=== PATIENT | male | born 1985 | race Two or more races ===

== ENCOUNTER 2020-10-12 17:24 | Emergency (ER) | payer BC, OTHER ==
--- NOTE | 2020-10-12 18:22 | EDM.PDOC ---
ED HPI GENERAL MEDICAL PROBLEM - General Chief Complaint: Respiratory Problem Stated Complaint: WEAK/COUGH/CHILLS/BODY ACHES Time Seen by Provider: 10/12/20 17:45 Source of Information: Reports: Patient History Limitations: Reports: No Limitations - History of Present Illness INITIAL COMMENTS - FREE TEXT/NARRATIVE: The patient presents with a cough, generalized weakness and body aches. He denies having a fever. His came back from [facility] recently and was sick. She is being evaluated now. He has no health problems like asthma or COPD. He has not lost his sense of smell or taste. He does smoke daily. Onset: Gradual Duration: Day(s): Location: Reports: Generalized Quality: Reports: Ache Severity: Moderate Improves with: Reports: None Worsens with: Reports: None Associated Symptoms: Reports: No Other Symptoms Generalized Pain Score (Numeric/FACES): 5 - Related Data Allergies Allergy/AdvReac Type Severity Reaction Status Date / Time No Known Allergies Allergy Verified 10/12/20 17:50 Home Meds: Home Meds dexAMETHasone [Dexamethasone] 6 mg PO ONETIME #12 tab 10/12/20 [Rx] Past Medical History - Past Health History Medical/Surgical History: Denies Medical/Surgical History Social & Family History - Tobacco Use Tobacco Use Status *Q: Current Every Day Tobacco User Years of Tobacco use: 20 Packs/Tins Daily: 1 - Recreational Drug Use Recreational Drug Use: No ED ROS GENERAL - Review of Systems Review Of Systems: See Below Constitutional: Reports: No Symptoms HEENT: Reports: No Symptoms Respiratory: Reports: No Symptoms Cardiovascular: Reports: No Symptoms Endocrine: Reports: No Symptoms GI/Abdominal: Reports: No Symptoms : Reports: No Symptoms Musculoskeletal: Reports: No Symptoms ED EXAM, GENERAL - Physical Exam Exam: See Below Exam Limited By: No Limitations General Appearance: Alert, No Apparent Distress Ears: Normal External Exam Nose: Normal Inspection Head: Atraumatic, Normocephalic Neck: Normal Inspection Respiratory/Chest: No Respiratory Distress, Lungs Clear, Normal Breath Sounds Cardiovascular: Regular Rate, Rhythm, No Edema, No Murmur GI/Abdominal: Soft, Non-Tender, No Organomegaly, No Mass Back Exam: Normal Inspection Extremities: Normal Inspection Course - Vital Signs Last Recorded V/S: Last Vital Signs Temp 97.6 F 10/12/20 17:48 Pulse 103 H 10/12/20 17:48 Resp 16 10/12/20 17:48 BP 129/91 H 10/12/20 17:48 Pulse Ox 97 10/12/20 17:48 - Orders/Labs/Meds Orders: Active Orders 24 hr Category Date Time Status Cardiac Monitoring [RC] . DIRECTED Care 10/12/20 17:59 Active Labs: Laboratory Tests 10/12/20 10/12/20 10/12/20 Range/Units 18:05 18:20 18:20 WBC 7.66 (4.23-9.07) K/mm3 RBC 5.24 (4.63-6.08) M/mm3 Hgb 14.9 (13.7-17.5) gm/dl Hct 45.3 (40.1-51.0) % MCV 86.5 (79.0-92.2) fl MCH 28.4 (25.7-32.2) pg MCHC 32.9 (32.2-35.5) g/dl RDW Std Deviation 41.3 (35.1-43.9) fL Plt Count 286 (163-337) K/mm3 MPV 9.5 (9.4-12.3) fl Neut % (Auto) 76.2 H (34.0-67.9) % Lymph % (Auto) 8.1 L (21.8-53.1) % Frio % (Auto) 12.5 H (5.3-12.2) % Eos % (Auto) 2.6 (0.8-7.0) Baso % (Auto) 0.3 (0.1-1.2) % Neut # (Auto) 5.84 H (1.78-5.38) K/mm3 Lymph # (Auto) 0.62 L (1.32-3.57) K/mm3 Frio # (Auto) 0.96 H (0.30-0.82) K/mm3 Eos # (Auto) 0.20 (0.04-0.54) K/mm3 Baso # (Auto) 0.02 (0.01-0.08) K/mm3 Manual Slide Review Abnormal smear Sodium 141 (136-145) mEq/L Potassium 3.8 (3.5-5.1) mEq/L Chloride 104 (98-107) mEq/L Carbon Dioxide 27 (21-32) mEq/L Anion Gap 13.8 (5-15) BUN 14 (7-18) mg/dL Creatinine 1.2 (0.7-1.3) mg/dL Est Cr Clr Drug Dosing 96.10 mL/min Estimated GFR (MDRD) > 60 (>60) mL/min BUN/Creatinine Ratio 11.7 L (14-18) Glucose 90 (70-99) mg/dL Calcium 8.8 (8.5-10.1) mg/dL Total Bilirubin 0.6 (0.2-1.0) mg/dL AST 35 (15-37) U/L ALT 44 (16-63) U/L Alkaline Phosphatase 60 (46-116) U/L C-Reactive Protein 0.7 (<1.0) mg/dL Total Protein 7.5 (6.4-8.2) g/dl Albumin 4.3 (3.4-5.0) g/dl Globulin 3.2 gm/dL Albumin/Globulin Ratio 1.3 (1-2) SARS-CoV-2 RNA (MIROSLAVA) Positive H (NEGATIVE) - Re-Assessments/Exams Free Text/Narrative Re-Assessment/Exam: 10/12/20 18:23 I ordered a CXR and labs. 10/12/20 19:25 His CXR looks good. His CBC and CMP look good. He is COVID 19 positive. I will give him a prescription some dexamethasone. Departure - Departure Time of Disposition: 19:30 Disposition: Home, Self-Care 01 Condition: Good Clinical Impression: COVID - Discharge Information *PRESCRIPTION DRUG MONITORING PROGRAM REVIEWED*: Not Applicable *COPY OF PRESCRIPTION DRUG MONITORING REPORT IN PATIENT EMILIANO: Not Applicable Prescriptions: dexAMETHasone [Dexamethasone] 6 mg PO ONETIME #12 tab Referrals: Jacquie Lee NP [Primary Care Provider] - 1 Week Forms: ED Department Discharge, ED Return to Work/School Form Additional Instructions: Drink plenty of fluids. Take tylenol or motrin as needed for pain or fever. If you start feeling worse in a few days start taking the dexamethasone. Please return if you are worse. Sepsis Event Note (ED) - Evaluation Sepsis Screening Result: No Definite Risk - Focused Exam Vital Signs: Vital Signs Temp Pulse Resp BP Pulse Ox 10/12/20 17:48 97.6 F 103 H 16 129/91 H 97 - My Orders Last 24 Hours: My Active Orders 10/12/20 17:59 Cardiac Monitoring [RC] . DIRECTED - Assessment/Plan Last 24 Hours: My Active Orders 10/12/20 17:59 Cardiac Monitoring [RC] . DIRECTED
--- NOTE | 2020-10-12 18:46 | CR ---
Chest: Portable view of the chest was obtained. Comparison: No prior chest imaging is available. Heart size and mediastinum are normal. Lungs are clear with no acute parenchymal change. No acute osseous abnormality is appreciated. Impression: 1. Nothing acute is seen on portable chest x-ray. Diagnostic code #1
== END 2020-10-12 19:42 | disposition home or self-care (01) ==
LOC: JD.ED 17:24
DX: U07.1 COVID-19 (principal); Z72.0 Tobacco use
CPT/HCPCS: 36415; 71045; 71045-26; 80053; 85025; 86140; 99283; 99285-25; U0002

== ENCOUNTER 2020-10-18 04:16 | Emergency (ER) | payer BC ==
[2020-10-18] MEDS ORDERED: EPINEPHrine 1 MG/ML SDV IM PRN (04:57)
[2020-10-18] MEDS ORDERED: methylPREDNISolone Sodium Succinate 125 MG/2 ML SDV IVPUSH PRN (04:57)
[2020-10-18] MEDS ORDERED: Famotidine 20 MG/2 ML SDV IVPUSH PRN (04:57)
[2020-10-18] MEDS ORDERED: diphenhydrAMINE 50 MG/ML SDV IVPUSH PRN (04:57)
[2020-10-18] MEDS ORDERED: Sodium Chloride 0.9% 100 ML ONE (04:59)
[2020-10-18] MEDS ORDERED: Sodium Chloride 0.9% 10 ML Syringe FLUSH SCH (05:00)
--- NOTE | 2020-10-18 05:01 | EDM.PDOC ---
ED HPI GENERAL MEDICAL PROBLEM - General Chief Complaint: Respiratory Problem Stated Complaint: COVID POSITIVE/SOB/COUGH/CHEST PAIN Time Seen by Provider: 10/18/20 04:27 Source of Information: Reports: Patient, Family () History Limitations: Reports: No Limitations - History of Present Illness INITIAL COMMENTS - FREE TEXT/NARRATIVE: Mr. Still is a very pleasant 35-year-old gentleman who states that he had been experiencing body aches, dry cough, and generalized weakness, which prompted him to come to the ED on 10/12/2020. He and his tested positive for the SARS-C oV-2 virus. The patient's had been visiting [place], apparently became infected, and brought it back to the patient, who had remained home. His received an infusion of Regen-COV, but he did not. Instead, he was started on dexamethasone and discharged home with a prescription for 6 mg, 1 tablet daily, which he states he started on , 10/13/2020. The patient now returns the ED stating that he is now experiencing a nonproductive cough which has caused him to vomit twice, and that the cough and vomiting has been causing him chest pain since 10/14/2020. He has also been experiencing chills without fever. He states that he has been taking ibuprofen and Tylenol, without much relief. Here in the ED, the patient is found to be slightly tachypneic at 22 rpm, otherwise, he is hemodynamically stable, afebrile, saturating 95% on room air. The patient denies having a recent sore throat, ear pain, nasal or sinus congestion, dyspnea, palpitations, constipation, diarrhea, abdominal pain, urinary symptoms, recent weight gain or weight loss, recent bloody bowel movements or black bowel movements, recent joint aches, headaches, or rashes. The patient's PCP is Jacquie Lee NP. The patient did not get a COVID vaccination. Chest Pain Score (Numeric/FACES): 5 - Related Data Allergies Allergy/AdvReac Type Severity Reaction Status Date / Time No Known Allergies Allergy Verified 10/18/20 04:35 Home Meds: Home Meds dexAMETHasone [Dexamethasone] 6 mg PO ONETIME #12 tab 10/12/20 [Rx] Orphenadrine [Norflex] 1 tab PO Q12H PRN #14 tab.er 10/18/20 [Rx] Past Medical History Endocrine/Metabolic History: Reports: Obesity/BMI 30+ - Infectious Disease History Infectious Disease History: Reports: Novel Coronavirus (dx'd 10/12/2020) - Past Surgical History HEENT Surgical History: Reports: Oral Surgery (dental extractions) Social & Family History - Tobacco Use Tobacco Use Status *Q: Current Every Day Tobacco User Years of Tobacco use: 15 Packs/Tins Daily: 0.3 Tobacco Use Comment: Started smoking 2005 - Alcohol Use Alcohol Use History: Yes Alcohol Use Frequency: Binges - Recreational Drug Use Recreational Drug Use: No - Living Situation & Occupation Living situation: Reports: , with Spouse, with Family (2 sons) Occupation: Employed ([employer]) ED ROS GENERAL - Review of Systems Review Of Systems: Comprehensive ROS is negative, except as noted in HPI. ED EXAM, GENERAL - Physical Exam Exam: See Below Exam Limited By: No Limitations General Appearance: Alert, WD/WN, Mild Distress (Appears uncomfortable. Coughs occasionally.) Eye Exam: Bilateral Eye: EOMI, Normal Inspection Ears: Normal External Exam, Hearing Grossly Normal Nose: Normal Inspection Throat/Mouth: Normal Inspection, Normal Lips, Normal Voice, No Airway Compromise Head: Atraumatic, Normocephalic Neck: Normal Inspection, Full Range of Motion Respiratory/Chest: No Respiratory Distress, Lungs Clear, Normal Breath Sounds, No Accessory Muscle Use. No: Decreased Breath Sounds, Crackles, Rhonchi, Wheezing, Stridor, Prolonged Expiration Cardiovascular: Normal Peripheral Pulses, Regular Rate, Rhythm, No Edema, No Gallop, No JVD, No Murmur, No Rub Peripheral Pulses: 3+: Radial (L), Radial (R) GI/Abdominal: Normal Bowel Sounds, Soft, Non-Tender, No Organomegaly, No Distention, No Abnormal Bruit, No Mass Back Exam: Normal Inspection, Full Range of Motion, NT Extremities: Normal Inspection, Normal Range of Motion, No Pedal Edema, Normal Capillary Refill Neurological: Alert, Oriented, Normal Cognition, No Motor/Sensory Deficits Psychiatric: Normal Affect Skin Exam: Warm, Dry, Intact, Normal Color, No Rash Course - Vital Signs Last Recorded V/S: Last Vital Signs Temp 37.4 C 10/18/20 04:30 Pulse 98 10/18/20 04:30 Resp 22 H 10/18/20 04:30 BP 133/83 10/18/20 04:30 Pulse Ox 95 10/18/20 04:30 - Orders/Labs/Meds Meds: Medications Discontinued Medications Generic Name Dose Route Start Last Admin Trade Name Rafiqq PRN Reason Stop Dose Admin Diphenhydramine HCl 50 mg 10/18/20 04:57 Diphenhydramine 50 Mg/Ml Sdv IVPUSH ONETIME PRN hypersensitivity reaction Epinephrine HCl 0.3 mg 10/18/20 04:57 Epinephrine 1 Mg/Ml Sdv IM ONETIME PRN hypersensitivity reaction Famotidine 20 mg 10/18/20 04:57 Famotidine 20 Mg/2 Ml Sdv IVPUSH ONETIME PRN hypersensitivity reaction CASIRIVIMAB/IMDEVIMAB 10 ml/ 110 mls @ 220 mls/hr 10/18/20 04:57 Sodium Chloride IV 10/18/20 05:26 ONETIME ONE Sodium Chloride Confirm 10/18/20 04:59 Normal Saline Administered 10/18/20 05:00 Dose 100 mls @ as directed .ROUTE .STK-MED ONE Methylprednisolone Sodium Succinate 125 mg 10/18/20 04:57 Methylprednisolone Sodium Succinate 125 Mg/2 Ml Sdv IVPUSH ONETIME PRN hypersensitivity reaction Orphenadrine Citrate 100 mg 10/18/20 05:15 10/18/20 05:27 Orphenadrine 100 Mg Tab.Er PO 10/18/20 05:16 100 mg ONETIME STA Administration Sodium Chloride 30 ml 10/18/20 05:00 Sodium Chloride 0.9% 10 Ml Syringe FLUSH ASDIRECTED MARCELINA - Re-Assessments/Exams Free Text/Narrative Re-Assessment/Exam: 10/18/20 04:58 As above, the patient had body aches, dry cough and generalized weakness, and subsequently tested positive for the SARS-CoV-2 virus this past Saturday. He was prescribed dexamethasone 6 mg daily, which he started taking on , but now presents to the ED with the same persistent nonproductive cough which has caused him to vomit twice, with chest pain since Saturday due to both the coughing and the vomiting. He has had chills without fever. His oxygen saturation is 95% on room air. He appears to be uncomfortable, but his physical exam is unremarkable. He states that he weighs 240 pounds, and is 6 foot 0, giving him a BMI of 32.5. He therefore qualifies for Regen-COV. I explained to the patient that at present there are 3 emergency use authorization monoclonal antibody formulations, and that we carry Casirivimab and Imdevimab (Regen-COV). I explained that Regen-COV is an investigational medicine used to treat mild to moderate symptoms of COVID-19 in nonhospitalized patients who are at higher risk for the development of severe COVID-19 symptoms or the need for hospitalization. I explained that Regen-COV is FDA authorized under an emergency use authorization. I explained that the main risk of receiving Regen-COV is an allergic reaction that can occur either during or after the infusion. Additionally, Regen-COV could reduce the body's response to a subsequent vaccine against the SARS-CoV-2 virus, which the patient acknowledged he would like to get. I instructed the patient that if he choses to get the infusion, it takes about an hour to get the infusion, and then he will have to wait another hour for observation. He agreed. I have ordered a Regen-COV infusion. 10/18/20 05:16 Notified that the patient wanted to talk to me. The patient stated that he changed his mind and that he does not want to take the Regen-COV, due to concerns about possible side effects. He requested something for his back pain. I will start him on Norflex, and submit a prescription for the same. I recommended that he take [id number] ibuprofen with it, as they tend to work well, and will probably work better than acetaminophen. He asked about a [facility] medicine. The current guidelines recommend either dexamethasone or Tessalon Perles, however, it is my experience that these medications do not benefit cough, but do have some side effects. I recommended self proning, which may be of some use. I recommend that he stay adequately hydrated and rested. I reminded the patient and his that they need to remain in strict isolation, and they acknowledged that. The patient already has a pulse oximeter at home. I advised him to discontinue the previously prescribed dexamethasone, as he is not at this time hypoxemic, but that if his SpO2 drops near 90%, that he should return to the ED for reevaluation. Departure - Departure Time of Disposition: 05:18 Disposition: Home, Self-Care 01 Condition: Good Clinical Impression: COVID-19 - Discharge Information *PRESCRIPTION DRUG MONITORING PROGRAM REVIEWED*: Not Applicable *COPY OF PRESCRIPTION DRUG MONITORING REPORT IN PATIENT EMILIANO: Not Applicable Prescriptions: Orphenadrine [Norflex] 1 tab PO Q12H PRN #14 tab.er PRN Reason: Muscle Spasm - Painful Instructions: COVID-19 Frequently Asked Questions Referrals: Jacquie Lee MAINFRAME DEVELOPER [Primary Care Provider] - Forms: ED Department Discharge Additional Instructions: You were seen in the emergency room for a persistent dry cough causing you to vomit and have chest pain, along with chills, associated with COVID-19 being diagnosed on 10/12/2020. Treatment with the monoclonal antibody medicine Regen-COV was offered, but declined. You have been started on the muscle relaxant Norflex, and a prescription for Norflex has been sent to the [facility] located in the [place] store. Take 1 tablet of Norflex every 12 hours, starting this evening, 10/18/2020, as prescribed. Norflex works well with ibuprofen. Take 3 tablets (600 mg) of [id number] ibuprofen, with food, up to every 8 hours, as needed for muscle and body aches. As discussed, there are no cough medicines that have been shown to be of benefit, however, lying in a face-down position may be of some help. Stay adequately hydrated and rested. As discussed, it is essential that you and your strictly quarantine until you are asymptomatic and test negative for the virus. Be aware that this may take 6 weeks or longer. As discussed, we recommend that you DISCONTINUE your previously prescribed dexamethasone. Continue to monitor your oxygen saturation. If it drops down to 90% or below, please return to the ER for reevaluation. Sepsis Event Note (ED) - Evaluation Sepsis Screening Result: No Definite Risk - Focused Exam Vital Signs: Vital Signs Temp Pulse Resp BP Pulse Ox 10/18/20 04:30 37.4 C 98 22 H 133/83 95
[2020-10-18] MEDS ORDERED: Orphenadrine 100 MG Tab.ER PO STA (05:15)
== END 2020-10-18 05:39 | disposition home or self-care (01) ==
LOC: JD.ED 04:16
DX: U07.1 COVID-19 (principal); E66.9 Obesity, unspecified; Z68.30 Body mass index [BMI] 30.0-30.9, adult; Z72.0 Tobacco use
CPT/HCPCS: 99284; A9270

== ENCOUNTER 2020-10-19 14:30 | Emergency (ER) | payer BC ==
[2020-10-19] MEDS ORDERED: Ketorolac 30 MG/ML SDV IVPUSH ONE (15:25)
[2020-10-19] MEDS ORDERED: Dexamethasone 4 MG/ML SDV IVPUSH ONE (15:26)
[2020-10-19] MEDS ORDERED: Metoclopramide 10 MG/2 ML SDV IVPUSH ONE (15:32)
--- NOTE | 2020-10-19 15:42 | EDM.PDOC ---
ED HPI GENERAL MEDICAL PROBLEM - General Chief Complaint: General Stated Complaint: COVID COUGH CHEST PAIN Time Seen by Provider: 10/19/20 14:52 Source of Information: Reports: Patient, RN Notes Reviewed History Limitations: Reports: No Limitations - History of Present Illness INITIAL COMMENTS - FREE TEXT/NARRATIVE: Patient is a 35-year-old male presenting to the emergency department with complaints of chest discomfort, cough, shortness of breath, body aches, and vomiting. He was diagnosed with Covid 7 days ago. Reports that he was put on a course of dexamethasone, however he stopped it yesterday at the instruction of the ER provider that he saw yesterday. He reports chest wall discomfort, primarily in the bottom of his rib cage worse with breathing and coughing. Body aches are also significant. He feels short of breath. Denies any chronic medical conditions. He did not receive Covid vaccinations and declined monoclonal antibody infusion yesterday. He has been using Tylenol and ibuprofen for discomfort. Last dose was around 1030 this morning. On arrival to ER, oxygen saturation was initially found to be 96% on room air, however by the time of my exam, he was maintaining 87 to 88% on room air. He is mildly tachycardic at 100-115. - Related Data Allergies Allergy/AdvReac Type Severity Reaction Status Date / Time No Known Allergies Allergy Verified 10/19/20 14:50 Home Meds: Home Meds dexAMETHasone [Dexamethasone] 6 mg PO ONETIME #12 tab 10/12/20 [Rx] Orphenadrine [Norflex] 1 tab PO Q12H PRN #14 tab.er 10/18/20 [Rx] Past Medical History - Past Health History Medical/Surgical History: Denies Medical/Surgical History Endocrine/Metabolic History: Reports: Obesity/BMI 30+ - Infectious Disease History Infectious Disease History: Reports: Novel Coronavirus - Past Surgical History HEENT Surgical History: Reports: Oral Surgery Social & Family History - Tobacco Use Tobacco Use Status *Q: Current Every Day Tobacco User Years of Tobacco use: 15 Packs/Tins Daily: 0.3 - Recreational Drug Use Recreational Drug Use: No - Living Situation & Occupation Living situation: Reports: , with Spouse, with Family (2 sons) Occupation: Employed ([employer]) ED ROS GENERAL - Review of Systems Review Of Systems: See Below Constitutional: Reports: Fever, Chills, Weakness, Fatigue HEENT: Reports: No Symptoms Respiratory: Reports: Shortness of Breath, Pleuritic Chest Pain, Cough Cardiovascular: Reports: Chest Pain, Dyspnea on Exertion. Denies: Lightheadedness Endocrine: Reports: No Symptoms GI/Abdominal: Reports: No Symptoms, Nausea, Vomiting : Reports: No Symptoms Musculoskeletal: Reports: Other (Generalized body aches) Skin: Reports: No Symptoms Neurological: Reports: Headache. Denies: Confusion, Dizziness Psychiatric: Reports: No Symptoms Hematologic/Lymphatic: Reports: No Symptoms Immunologic: Reports: No Symptoms ED EXAM, GENERAL - Physical Exam Exam: See Below Exam Limited By: No Limitations General Appearance: Alert, Mild Distress Respiratory/Chest: No Respiratory Distress, No Accessory Muscle Use (Fine crackles throughout lung starkey. Chest wall tender to palpation, particular to the bilateral lower rib cage.) Cardiovascular: Normal Peripheral Pulses, Regular Rate, Rhythm, No Edema, No Gallop, No JVD, No Murmur, No Rub GI/Abdominal: Normal Bowel Sounds, Soft, Non-Tender, No Organomegaly, No Distention, No Abnormal Bruit, No Mass Neurological: Alert, Oriented, CN II-XII Intact, Normal Cognition, Normal Gait, Normal Reflexes, No Motor/Sensory Deficits Psychiatric: Anxious Skin Exam: Warm, Dry, Intact, Normal Color, No Rash #1 Interpretation EKG Date: 10/19/20 Time: 15:06 Rhythm: NSR Rate (Beats/Min): 109 [place]: LAD-Left [place] Deviation P-Wave: Present QRS: Normal ST-T: Normal QT: Normal (EK) EKG Interpretation Comments: Sinus tachycardia 110/min Consider left atrial enlargement Left axis deviation Left anterior fascicular block Left ventricular hypertrophy pattern QTC is moderately prolonged EKG interpretted by Dr. Giovanna MD Course - Vital Signs Last Recorded V/S: Last Vital Signs Temp 98.1 F 10/19/20 16:40 Pulse 97 10/19/20 16:40 Resp 18 10/19/20 16:40 BP 108/66 10/19/20 16:40 Pulse Ox 97 10/19/20 16:40 - Orders/Labs/Meds Orders: Active Orders 24 hr Category Date Time Status Chest 1V Frontal [CR] Stat Exams 10/19/20 14:55 Taken Labs: Laboratory Tests 10/19/20 10/19/20 10/19/20 Range/Units 15:14 15:14 15:14 WBC 5.27 (4.23-9.07) K/mm3 RBC 5.94 (4.63-6.08) M/mm3 Hgb 16.5 D (13.7-17.5) gm/dl Hct 49.7 (40.1-51.0) % MCV 83.7 (79.0-92.2) fl MCH 27.8 (25.7-32.2) pg MCHC 33.2 (32.2-35.5) g/dl RDW Std Deviation 41.5 (35.1-43.9) fL Plt Count 203 D (163-337) K/mm3 MPV 10.3 (9.4-12.3) fl Neut % (Auto) 71.7 H (34.0-67.9) % Lymph % (Auto) 19.2 L (21.8-53.1) % [place] % (Auto) 8.5 (5.3-12.2) % Eos % (Auto) 0 L (0.8-7.0) Baso % (Auto) 0.2 (0.1-1.2) % Neut # (Auto) 3.78 (1.78-5.38) K/mm3 Lymph # (Auto) 1.01 L (1.32-3.57) K/mm3 [place] # (Auto) 0.45 (0.30-0.82) K/mm3 Eos # (Auto) 0.00 L (0.04-0.54) K/mm3 Baso # (Auto) 0.01 (0.01-0.08) K/mm3 D-Dimer, Quantitative 0.52 H (0.19-0.50) mg/L Sodium 135 L (136-145) mEq/L Potassium 3.2 L (3.5-5.1) mEq/L Chloride 95 L (98-107) mEq/L Carbon Dioxide 27 (21-32) mEq/L Anion Gap 16.2 H (5-15) BUN 18 (7-18) mg/dL Creatinine 1.4 H (0.7-1.3) mg/dL Est Cr Clr Drug Dosing 75.05 mL/min Estimated GFR (MDRD) 58 (>60) mL/min BUN/Creatinine Ratio 12.9 L (14-18) Glucose 110 H (70-99) mg/dL Calcium 8.8 (8.5-10.1) mg/dL Total Bilirubin 1.2 H (0.2-1.0) mg/dL AST 139 H (15-37) U/L ALT 205 H (16-63) U/L Alkaline Phosphatase 133 H (46-116) U/L Troponin I < 0.017 (0.00-0.056) ng/mL C-Reactive Protein (<1.0) mg/dL Total Protein 8.1 (6.4-8.2) g/dl Albumin 3.9 (3.4-5.0) g/dl Globulin 4.2 gm/dL Albumin/Globulin Ratio 0.9 L (1-2) // Range/Units 15:14 WBC (4.23-9.07) K/mm3 RBC (4.63-6.08) M/mm3 Hgb (13.7-17.5) gm/dl Hct (40.1-51.0) % MCV (79.0-92.2) fl MCH (25.7-32.2) pg MCHC (32.2-35.5) g/dl RDW Std Deviation (35.1-43.9) fL Plt Count (163-337) K/mm3 MPV (9.4-12.3) fl Neut % (Auto) (34.0-67.9) % Lymph % (Auto) (21.8-53.1) % [place] % (Auto) (5.3-12.2) % Eos % (Auto) (0.8-7.0) Baso % (Auto) (0.1-1.2) % Neut # (Auto) (1.78-5.38) K/mm3 Lymph # (Auto) (1.32-3.57) K/mm3 [place] # (Auto) (0.30-0.82) K/mm3 Eos # (Auto) (0.04-0.54) K/mm3 Baso # (Auto) (0.01-0.08) K/mm3 D-Dimer, Quantitative (0.19-0.50) mg/L Sodium (136-145) mEq/L Potassium (3.5-5.1) mEq/L Chloride (98-107) mEq/L Carbon Dioxide (21-32) mEq/L Anion Gap (5-15) BUN (7-18) mg/dL Creatinine (0.7-1.3) mg/dL Est Cr Clr Drug Dosing mL/min Estimated GFR (MDRD) (>60) mL/min BUN/Creatinine Ratio (14-18) Glucose (70-99) mg/dL Calcium (8.5-10.1) mg/dL Total Bilirubin (0.2-1.0) mg/dL AST (15-37) U/L ALT (16-63) U/L Alkaline Phosphatase (46-116) U/L Troponin I (0.00-0.056) ng/mL C-Reactive Protein 12.1 H* (<1.0) mg/dL Total Protein (6.4-8.2) g/dl Albumin (3.4-5.0) g/dl Globulin gm/dL Albumin/Globulin Ratio (1-2) Meds: Medications Discontinued Medications Generic Name Dose Route Start Last Admin Trade Name Freq PRN Reason Stop Dose Admin Dexamethasone 4 mg 10/19/20 15:26 10/19/20 15:46 Dexamethasone 4 Mg/Ml Sdv IVPUSH 10/19/20 15:27 4 mg ONETIME ONE Administration Potassium Chloride/Sodium Chloride 1,000 mls @ 100 mls/hr 10/19/20 16:00 10/19/20 16:36 Normal Saline With 40 Meq Kcl IV 100 mls/hr ASDIRECTED MARCELINA Administration Sodium Chloride 100 mls @ 60 mls/hr 10/19/20 16:15 10/19/20 16:29 Normal Saline IV 60 mls/hr ASDIRECTED MARCELINA Administration Iopamidol 100 ml 10/19/20 16:07 10/19/20 16:29 Iopamidol 755 Mg/Ml 100 Ml Bottle IVPUSH 10/19/20 16:08 100 ml ONETIME ONE Administration Ketorolac Tromethamine 30 mg 10/19/20 15:25 10/19/20 15:45 Ketorolac 30 Mg/Ml Sdv IVPUSH 10/19/20 15:26 30 mg ONETIME ONE Administration Metoclopramide HCl 10 mg 10/19/20 15:32 10/19/20 15:46 Metoclopramide 10 Mg/2 Ml Sdv IVPUSH 10/19/20 15:33 10 mg ONETIME ONE Administration Sodium Chloride 10 ml 10/19/20 16:15 10/19/20 16:29 Sodium Chloride 0.9% 10 Ml Syringe FLUSH 10 ml ASDIRECTED [facility] Administration - Re-Assessments/Exams Free Text/Narrative Re-Assessment/Exam: Patient is a 35-year-old male presenting to the emergency department with complaints of worsening of Covid symptoms. He was seen in this ER early yesterday morning as well. He was found to be stable at that time. He initially requested monoclonal antibody infusion, however later declined as he was concerned about possible side effects. He returns to ER today with complaints of worsening symptoms. Initial oxygen saturation was 96% on room air, however at the time of my exam, he was maintaining 87 to 88% on room air. He was placed on O2 at 2L/NC with improvement to 92% noted. On exam, he does defect diffuse fine crackles throughout his lung starkey likely due to Covid pneumonia. Exam is otherwise unremarkable. Patient is quite anxious. I have ordered blood work, EKG, and chest x-ray. I will give him dexamethasone 4 mg IV, Reglan 10 mg IV for nausea, and Toradol 30 mg IV for body aches and chest wall discomfort. 10/19/20 16:22 Hematology significant for D-dimer elevated 0.52, sodium 135, potassium 3.2, chloride 95, anion gap 16.2, creatinine 1.4, total bili 1.2, AST 139, ALT 205, alkaline phosphatase 133, CRP 12.1. Troponin is undetectably low. Chest x-ray shows bilateral Covid pneumonia. Given the patient's symptoms and elevation in D-dimer, I have ordered CT angiogram of the chest to rule out PE. He is currently saturating in the low 90s on 2 L of oxygen by nasal cannula. 10/19/20 17:09 CT angiogram of the chest shows no pulmonary embolism but does show moderately severe Covid pneumonia. Patient's oxygen saturations are in the low 90s on 2 L by nasal cannula. His symptoms have improved after medications given, however he does require hospitalization. Patient had called and said that he would like to leave. I discussed with him the severity of his illness and that if he goes home he will likely get worse. He agreed to hospitalization. Unfortunately have no beds available in this facility, therefore I was on the phone with Vadim Caceres when he rang again and said that he would like to sign out AGAINST MEDICAL ADVICE. Patient was advised that he could very well go into respiratory failure and , however he chose to leave. Departure - Departure Time of Disposition: 17:10 Disposition: Against Medical Advice 07 Condition: Fair Clinical Impression: Pneumonia due to COVID-19 virus - Discharge Information Referrals: Jacquie Lee NP [Primary Care Provider] - Forms: ED Department Discharge Sepsis Event Note (ED) - Evaluation Sepsis Screening Result: No Definite Risk - Focused Exam Vital Signs: Vital Signs Temp Pulse Resp BP Pulse Ox 10/19/20 16:40 98.1 F 97 18 108/66 97 10/19/20 14:46 97.8 F 103 H 18 112/87 96 - My Orders Last 24 Hours: My Active Orders 10/19/20 14:55 Chest 1V Frontal [CR] Stat - Assessment/Plan Last 24 Hours: My Active Orders 10/19/20 14:55 Chest 1V Frontal [CR] Stat
[2020-10-19] MEDS ORDERED: Sodium Chloride 0.9% with KCl 1,000 ML IV SCH (16:00)
[2020-10-19] MEDS ORDERED: Iopamidol 755 Mg/ML 100 ML Bottle IVPUSH ONE (16:07)
[2020-10-19] MEDS ORDERED: Sodium Chloride 0.9% 100 ML IV SCH (16:15)
[2020-10-19] MEDS ORDERED: Sodium Chloride 0.9% 10 ML Syringe FLUSH SCH (16:15)
--- NOTE | 2020-10-19 20:14 | CT ---
CT chest Technique: Multiple axial sections through the chest were obtained. Intravenous contrast was utilized. Study has been performed as a pulmonary angiogram protocol. Comparison: No prior chest CT study, prior chest x-ray performed on 10/12/20. Findings: Pulmonary arteries are fairly well opacified. No filling defects are seen to indicate pulmonary embolism. Thoracic aorta shows no aneurysm. No mediastinal adenopathy is seen. No axillary adenopathy is noted. No pericardial thickening is seen. Small portion of the visualized upper abdominal structures show several nodules inferior to the spleen compatible with accessory splenic tissue. No acute abdominal abnormality is appreciated. Patchy areas of increased density are noted on both sides of the chest compatible with patchy areas of probable COVID pneumonia. These parenchymal findings represent an interval change from prior chest x-ray. Impression: 1. Patchy areas of increased density within both sides of the chest compatible with COVID pneumonia. This is an interval change from prior chest x-ray. 2. No findings of pulmonary embolism. Diagnostic code #3 I agree with preliminary report from [facility], finalized on 10/19/20, 5:48 PM CDT, code 1
--- NOTE | 2020-10-20 09:12 | CR ---
Chest: Portable view of the chest was obtained. Comparison: Prior chest x-ray 10/12/20. Patchy areas of increased density are seen on both sides of the chest. These findings are an interval change from prior chest x-ray. Heart size and mediastinum are normal. Bony structures are grossly intact. Impression: 1. Patchy areas of increased density on both sides of the chest compatible with bilateral COVID pneumonia. 2. No other acute abnormality is appreciated. Diagnostic code #3
== END 2020-10-19 17:08 | disposition left against medical advice (07) ==
LOC: JD.ED 14:30
DX: U07.1 COVID-19 (principal); J12.82 Pneumonia due to coronavirus disease 2019; E66.9 Obesity, unspecified; Z68.34 Body mass index [BMI] 34.0-34.9, adult; Z72.0 Tobacco use
CPT/HCPCS: 36415; 71045; 71275; 80053; 84484; 85025; 85379; 86140; 93005; 96374; 96375; 99285; J1100; J1885; J2765; J3480; Q9967; 93010; 99284

== ENCOUNTER 2020-10-20 14:17 | Emergency (ER) | payer BC ==
[2020-10-20] MEDS ORDERED: Sodium Chloride 0.9% 10 ML Syringe FLUSH PRN (14:53)
--- NOTE | 2020-10-20 15:13 | EDM.PDOC ---
ED HPI GENERAL MEDICAL PROBLEM - General Chief Complaint: Respiratory Problem Stated Complaint: COVID + NOT BETTER Time Seen by Provider: 10/20/20 14:53 Source of Information: Reports: Patient, Old Records (visit from 10/12, 10/18, 10/19), RN Notes Reviewed History Limitations: Reports: No Limitations - History of Present Illness INITIAL COMMENTS - FREE TEXT/NARRATIVE: Patient is a 35-year-old male who presents to the ER again for his COVID-19 disease. He was diagnosed with COVID-19 on 10/12/2020, he was sent home with a prescription for dexamethasone, and return to the ER on 10/18/2020 for ongoing management, he was then given a prescription for Norflex, and was told to stop taking the neck dexamethasone, he presented to the ER yesterday, because his COVID was just not getting much better and he felt more generalized fatigue and weakness. O2 sats were in the high 80s on room air, so he was placed on 2 L of oxygen and this did improve his O2 sats to 92%. Extensive work-up was done yesterday to include angiography, D-dimer and labs. He did have elevated liver enzymes, and his CT angiogram showed no sign of a blood clot in his lungs but it did show moderate to Covid pneumonia throughout all lung starkey. He was going to be transferred to [place] for ongoing hospital management but the patient decided to go home AGAINST MEDICAL ADVICE at that time. Patient returns again today, because he is not feeling much better O2 sats at time of triage were in the 70s reported by nursing staff and he was placed on 4 L nasal cannula O2 sats are 92% on the oxygen via nasal cannula. He is complaining of generalized COVID symptoms, body ache, fatigue, shortness of breath, cough, low-grade fever. Generalized Pain Score (Numeric/FACES): 10 - Related Data Allergies Allergy/AdvReac Type Severity Reaction Status Date / Time No Known Allergies Allergy Verified 10/20/20 15:02 Home Meds: Home Meds dexAMETHasone [Dexamethasone] 6 mg PO ONETIME #12 tab 10/12/20 [Rx] Orphenadrine [Norflex] 1 tab PO Q12H PRN #14 tab.er 10/18/20 [Rx] Past Medical History Endocrine/Metabolic History: Reports: Obesity/BMI 30+ - Infectious Disease History Infectious Disease History: Reports: Novel Coronavirus (10/12/20) - Past Surgical History HEENT Surgical History: Reports: Oral Surgery Social & Family History - Tobacco Use Tobacco Use Status *Q: Current Every Day Tobacco User Years of Tobacco use: 14 Packs/Tins Daily: 1 - Caffeine Use Caffeine Use: Reports: None - Recreational Drug Use Recreational Drug Use: No - Living Situation & Occupation Living situation: Reports: , with Spouse, with Family (2 sons) Occupation: Employed ([employer]) ED ROS GENERAL - Review of Systems Review Of Systems: Comprehensive ROS is negative, except as noted in HPI. ED EXAM, GENERAL - Physical Exam Exam: See Below Exam Limited By: No Limitations General Appearance: Alert, WD/WN, No Apparent Distress Respiratory/Chest: Respiratory Distress (pt talks in broken sentences), Decreased Breath Sounds (diffuse bilaterally), Crackles (diffuse bilaterally) Cardiovascular: Normal Peripheral Pulses, Regular Rate, Rhythm GI/Abdominal: Normal Bowel Sounds, Soft, Non-Tender, No Distention, No Mass Extremities: Normal Inspection, Normal Capillary Refill Neurological: Alert, Oriented, Normal Cognition, No Motor/Sensory Deficits Psychiatric: Normal Affect, Normal Mood Skin Exam: Warm, Dry, Intact, Normal Color, No Rash Course - Vital Signs Last Recorded V/S: Last Vital Signs Temp 98.7 F 10/20/20 15:01 Pulse 118 H 10/20/20 15:01 Resp 20 10/20/20 15:01 BP 117/71 10/20/20 15:01 Pulse Ox 74 L 10/20/20 15:01 - Orders/Labs/Meds Orders: Active Orders 24 hr Category Date Time Status Oxygen Therapy, ED [RC] ASDIRECTED Care 10/20/20 14:55 Ordered Peripheral IV Care [RC] . DIRECTED Care 10/20/20 14:53 Ordered Sodium Chloride 0.9% [Saline Flush] Med 10/20/20 14:53 Ordered 10 ml FLUSH ASDIRECTED PRN Peripheral IV Insertion Adult [OM.PC] Routine Oth 10/20/20 14:53 Ordered Medication Orders Sodium Chloride (Sodium Chloride 0.9% 10 Ml Syringe) 10 ml FLUSH ASDIRECTED PRN PRN Reason: Keep Vein Open Last Admin: 10/20/20 15:04 Dose: 10 ml Documented by: ANDREW Labs: Laboratory Tests 10/20/20 10/20/20 10/20/20 Range/Units 14:48 14:48 15:14 WBC 7.24 (4.23-9.07) K/mm3 RBC 6.02 (4.63-6.08) M/mm3 Hgb 16.6 (13.7-17.5) gm/dl Hct 49.8 (40.1-51.0) % MCV 82.7 (79.0-92.2) fl MCH 27.6 (25.7-32.2) pg MCHC 33.3 (32.2-35.5) g/dl RDW Std Deviation 40.7 (35.1-43.9) fL Plt Count 264 (163-337) K/mm3 MPV 10.3 (9.4-12.3) fl Neut % (Auto) 78.1 H (34.0-67.9) % Lymph % (Auto) 13.8 L (21.8-53.1) % [place] % (Auto) 7.7 (5.3-12.2) % Eos % (Auto) 0 L (0.8-7.0) Baso % (Auto) 0.1 (0.1-1.2) % Neut # (Auto) 5.65 H (1.78-5.38) K/mm3 Lymph # (Auto) 1.00 L (1.32-3.57) K/mm3 [place] # (Auto) 0.56 (0.30-0.82) K/mm3 Eos # (Auto) 0.00 L (0.04-0.54) K/mm3 Baso # (Auto) 0.01 (0.01-0.08) K/mm3 Puncture Site Lt radial ABG pH 7.59 H (7.35-7.45) ABG pCO2 23.0 L (35.0-45.0) mmHg ABG pO2 57.0 L (80.0-100.0) mmHg ABG HCO3 22.1 (22.0-26.0) meq/L ABG O2 Saturation 91.6 L (96.0-97.0) % ABG Base Excess 2.6 H (-2-2.0) Salty Test Positive A-a Gradient 171 mmHg O2 Delivery Device Nasal cannula Oxygen Flow Rate 4.0 FiO2 36.00 (21.00-100.00) % Sodium 136 (136-145) mEq/L Potassium 3.5 (3.5-5.1) mEq/L Chloride 98 (98-107) mEq/L Carbon Dioxide 23 (21-32) mEq/L Anion Gap 18.5 H (5-15) BUN 25 H (7-18) mg/dL Creatinine 1.6 H (0.7-1.3) mg/dL Est Cr Clr Drug Dosing 74.21 mL/min Estimated GFR (MDRD) 50 (>60) mL/min BUN/Creatinine Ratio 15.6 (14-18) Glucose 124 H (70-99) mg/dL Calcium 8.8 (8.5-10.1) mg/dL Total Bilirubin 1.1 H (0.2-1.0) mg/dL AST 98 H (15-37) U/L ALT 161 H (16-63) U/L Alkaline Phosphatase 123 H (46-116) U/L C-Reactive Protein 10.0 H* (<1.0) mg/dL Total Protein 8.1 (6.4-8.2) g/dl Albumin 3.6 (3.4-5.0) g/dl Globulin 4.5 gm/dL Albumin/Globulin Ratio 0.8 L (1-2) Meds: Medications Generic Name Dose Route Start Last Admin Trade Name [place] PRN Reason Stop Dose Admin Sodium Chloride 10 ml 10/20/20 14:53 10/20/20 15:04 Sodium Chloride 0.9% 10 Ml Syringe FLUSH 10 ml ASDIRECTED PRN Administration Keep Vein Open Discontinued Medications Generic Name Dose Route Start Last Admin Trade Name Radha PRN Reason Stop Dose Admin Dexamethasone 10 mg 10/20/20 15:27 Dexamethasone 10 Mg/Ml Sdv IVPUSH 10/20/20 15:28 ONETIME ONE Remdesivir 200 mg/ Sodium 250 mls @ 250 mls/hr 10/20/20 15:26 Chloride IV 10/20/20 15:27 ONETIME ONE - Re-Assessments/Exams Free Text/Narrative Re-Assessment/Exam: 10/20/20 15:22 Patient presents to the ER again today for his COVID-19 disease not getting much better. We will repeat basic labs and get a blood gas, I did call over to [facility] right away as the patient was requiring 4 L nasal cannula for his hypoxia, he is staying roughly around 92% on the 4 L. Blood gas did demonstrate a pH of 7.59, CO2 at 23, bicarb at 22.1, and his PO2 is 57. Initial labs resulted was a CBC that appears to be within normal limits, the patient's metabolic, and CRP are still pending. I was able to talk with one call at [place] in [place], and they do say that Dr. Pizano is on-call and they are trying to reach him for hospitalization purposes for his COVID-19 pneumonia and hypoxia. 10/20/20 15:32 I was able to talk with Dr. Pizano, and he does graciously accept the patient for transfer for his COVID-19 pneumonia and hypoxia. Metabolic panel does demonstrate slightly elevated anion gap of 18.5, it was 16 yesterday, creatinine has elevated to 1.6 from 1.4 yesterday, GFR has decreased from 58-50, he still has elevated transaminitis however this seems to be a little bit better than yesterday's levels, and his CRP is slightly better from yesterday, at 10. Dr. Pizano did want 10 mg of dexamethasone, and to give 200 mg of remdesivir, this has been ordered. Departure - Departure Time of Disposition: 15:34 Disposition: DC/Tfer to Acute Hospital 02 Condition: Fair Clinical Impression: Pneumonia due to COVID-19 virus, Hypoxia - Discharge Information Referrals: Jacquie Lee NP [Primary Care Provider] - Forms: ED Department Discharge Sepsis Event Note (ED) - Evaluation Sepsis Screening Result: No Definite Risk - Focused Exam Vital Signs: Vital Signs Temp Pulse Resp BP Pulse Ox Pulse Ox 10/20/20 15:01 98.7 F 118 H 20 117/71 74 L 10/20/20 14:55 93 L 10/20/20 14:45 75 L - My Orders Last 24 Hours: My Active Orders 10/20/20 14:53 Peripheral IV Care [RC] . DIRECTED Sodium Chloride 0.9% [Saline Flush] 10 ml FLUSH ASDIRECTED PRN Peripheral IV Insertion Adult [OM.PC] Routine 10/20/20 14:55 Oxygen Therapy, ED [RC] ASDIRECTED - Assessment/Plan Last 24 Hours: My Active Orders 10/20/20 14:53 Peripheral IV Care [RC] . DIRECTED Sodium Chloride 0.9% [Saline Flush] 10 ml FLUSH ASDIRECTED PRN Peripheral IV Insertion Adult [OM.PC] Routine 10/20/20 14:55 Oxygen Therapy, ED [RC] ASDIRECTED
[2020-10-20] MEDS ORDERED: REMDESIVIR 200 MG in Sodium Chloride 0.9% 250 ML IV ONE (15:26)
[2020-10-20] MEDS ORDERED: Dexamethasone 10 MG/ML SDV IVPUSH ONE (15:27)
[2020-10-20] MEDS ORDERED: Ketorolac 30 MG/ML SDV IVPUSH ONE (16:09)
[2020-10-20] MEDS ORDERED: Sodium Chloride 0.9% 10 ML Syringe FLUSH SCH (16:45)
[2020-10-20] MEDS ORDERED: Ondansetron 4 MG/2 ML SDV IVPUSH ONE (18:04)
== END 2020-10-20 18:20 ==
LOC: JD.ED 14:17
DX: U07.1 COVID-19 (principal); J12.82 Pneumonia due to coronavirus disease 2019; R09.02 Hypoxemia; E66.9 Obesity, unspecified; Z68.29 Body mass index [BMI] 29.0-29.9, adult; Z72.0 Tobacco use
CPT/HCPCS: 36415; 36600; 80053; 82803; 85025; 86140; 96374; 96375; 99284; J1100; J1885; J2405; J7050

== ENCOUNTER 2023-12-06 22:41 | Emergency (ER) | payer BC ==
[2023-12-06] MEDS ORDERED: Sodium Chloride 0.9% 10 ML Syringe FLUSH PRN (23:28)
[2023-12-06] MEDS ORDERED: Naloxone 0.4 MG/ML SDV IVPUSH PRN (23:30)
[2023-12-06] MEDS: Clindamycin Phosphate in D5W 900 MG in Premix Bag 1 BAG IV ONE (23:59)
[2023-12-06] MEDS: Morphine 4 MG/ML Syringe IVPUSH ONE (23:59)
[2023-12-06] MEDS: Sodium Chloride 0.9% 1,000 ML IV ONE (23:59)
[2023-12-07 00:04] LABS: BASOPHILS ABSOLUTE AUTO 0.1 K/mm3 (0.0-0.2); BASOPHILS PERCENT AUTO 0.8 % (0.0-1.0); EOSINOPHILS ABSOLUTE AUTO 0.5 K/mm3 (0.0-0.4); EOSINOPHILS PERCENT AUTO 6.2 % (0.0-6.0); HEMATOCRIT 44.5 % (42.0-52.0); IMMATURE GRAN ABSOLUTE AUTO 0.02 K/mm3 (0.00-0.05); IMMATURE GRAN PERCENT AUTO 0.3 % (0.0-0.4); LYMPHOCYTES ABSOLUTE AUTO 3.4 K/mm3 (1.0-4.8); MEAN CORPUSCULAR HEMOGLOBIN 27.8 pg (28.0-32.0); MEAN CORPUSCULAR HGB CONC 33.7 g/dl (32.0-36.0); MEAN CORPUSCULAR VOLUME 82.6 fl (83.0-99.0); MEAN PLATELET VOLUME 9.4 fl (9.4-12.4); MONOCYTES ABSOLUTE AUTO 0.6 K/mm3 (0.0-0.8); MONOCYTES PERCENT AUTO 7.5 % (0.0-8.0); NEUTROPHILS ABSOLUTE AUTO 3.3 K/mm3 (1.8-7.7); NEUTROPHILS PERCENT AUTO 42.2 % (41.0-71.0); PLATELET COUNT,PLT 267 K/mm3 (150-400); RED BLOOD CELL COUNT 5.39 M/mm3 (4.52-5.90); WHITE BLOOD CELL COUNT,WBC 7.88 K/mm3 (3.9-11.3)
[2023-12-07 00:24] LABS: A/G RATIO 1.6 (1-2); ALBUMIN 4.2 g/dl (3.4-5.0); ALKALINE PHOSPHATASE 50 U/L (46-116); ANION GAP 13.6 (5-15); BILIRUBIN TOTAL 0.6 mg/dL (0.2-1.0); BLOOD UREA NITROGEN,BUN 13 mg/dL (7-18); CALCIUM 8.2 mg/dL (8.5-10.1); CARBON DIOXIDE,CO2 25 mEq/L (21-32); CHLORIDE,CL 105 mEq/L (98-107); ESTIMATED GFR 100 mL/min (>60); SODIUM,NA 140 mEq/L (136-145)
[2023-12-07 00:28] LABS: GLUCOSE RANDOM 121 mg/dL (70-99); POTASSIUM,K 3.6 mEq/L (3.5-5.1)
== END 2023-12-07 01:08 | disposition home or self-care (01) ==
LOC: JD.ED 22:41
DX: K04.7 Periapical abscess without sinus (principal); Z86.16 Personal history of COVID-19
CPT/HCPCS: 36415; 80053; 85025; 96365; 96375; 99283; J0736; J2270; J7030; 99282